=== PATIENT | male | born 1990 | race African-American/Black ===

== ENCOUNTER 2017-01-19 13:27 | Emergency (ER) | payer MEDICAID ==
[~2017-01-19] VITALS: Ht 175.3 cm; Wt 66.0 kg
[2017-01-19 14:09] VITALS: BP 116/74
== END 2017-01-19 16:29 | disposition home or self-care (01) ==
LOC: ER 14:49
DX: J40 Bronchitis, not specified as acute or chronic (principal); J45.909 Unspecified asthma, uncomplicated; F17.210 Nicotine dependence, cigarettes, uncomplicated; F12.10 Cannabis abuse, uncomplicated
CPT/HCPCS: 71010; 99283

== ENCOUNTER 2020-06-25 18:46 | Emergency (ER) | payer MEDICAID ==
[~2020-06-25] VITALS: Ht 177.8 cm; Wt 72.0 kg
[2020-06-25] MEDS ORDERED: HYDROCODONE/ACETAMINOPHEN 5/325MG TABLET PO ONE (19:30)
[2020-06-25] MEDS ORDERED: KETOROLAC 60MG/2ML VIAL IM ONE (21:30)
[2020-06-25 21:43] VITALS: BP 110/69
== END 2020-06-25 22:26 | disposition home or self-care (01) ==
LOC: ER 18:46
DX: S00.81XA Abrasion of other part of head, initial encounter (principal); R26.9 Unspecified abnormalities of gait and mobility; M54.30 Sciatica, unspecified side; J45.909 Unspecified asthma, uncomplicated; F12.10 Cannabis abuse, uncomplicated; V43.52XA Car driver injured in collision with other type car in traffic accident, initial encounter; Y93.89 Activity, other specified; Y92.488 Other paved roadways as the place of occurrence of the external cause
CPT/HCPCS: 70450; 96372; 99284; J1885